=== PATIENT | female | born 1980 ===

== ENCOUNTER 2021-03-10 14:03 | Outpatient (CLI) | payer OTHER ==
[~2021-03-10 14:03] MED LIST: BENADRYL ALLERG25 MG PO; CLONAZEPAM0.5 MG PO; EFFEXOR XR150 MG PO
== END 2021-03-10 14:27 | disposition home or self-care (01) ==
LOC: MAMO-SONO 14:03
PROVIDERS: ATTEND Obstetrics & Gynecology
DX: N60.11 Diffuse cystic mastopathy of right breast (principal); N60.12 Diffuse cystic mastopathy of left breast; Z12.31 Encounter for screening mammogram for malignant neoplasm of breast

== ENCOUNTER 2021-05-27 10:48 | Outpatient (CLI) | payer OTHER | END 2021-05-27 11:07 | disposition home or self-care (01) | LOC: SONOGRAMA 10:48 | PROVIDERS: ATTEND Internal Medicine Endocrinology, Diabetes & Metabolism | DX: E04.8 Other specified nontoxic goiter (principal) ==

== ENCOUNTER 2021-07-22 12:22 | Outpatient (CLI) | payer OTHER | END 2021-07-22 12:29 | disposition home or self-care (01) | LOC: RAD 12:22 | PROVIDERS: ATTEND Orthopaedic Surgery Hand Surgery | DX: S69.91XA Unspecified injury of right wrist, hand and finger(s), initial encounter (principal) ==

== ENCOUNTER 2022-12-31 12:17 | Outpatient (CLI) | payer OTHER | END 2022-12-31 12:33 | disposition home or self-care (01) | LOC: MAMO-SONO 12:17 | PROVIDERS: ATTEND Obstetrics & Gynecology | DX: N60.11 Diffuse cystic mastopathy of right breast (principal); N60.12 Diffuse cystic mastopathy of left breast; Z12.31 Encounter for screening mammogram for malignant neoplasm of breast ==